=== PATIENT | female | born 1980 | race Caucasian/White ===

== ENCOUNTER 2017-01-09 11:26 | Emergency (ER) | payer BC ==
[~2017-01-09] VITALS: Ht 170.2 cm; Wt 63.5 kg
[~2017-01-09 11:26] MED LIST: CIPR500T94 PO; OXYC-323 PO
[2017-01-09] MEDS ORDERED: ONDANSETRON PF 4 MG/2 ML VIAL. IV ONE (12:30)
[2017-01-09] MEDS ORDERED: KETOROLAC TROMETHAMINE 30 MG/ML INJ. IV ONE (12:30)
[2017-01-09] MEDS ORDERED: LIDO:MAALOX:DONNATAL 1:1:1 15 ML SINGLE DOSE SWSW ONE (12:30)
[2017-01-09 12:47] LABS: CALCIUM 9.9 mg/dL (8.5-10.1); CREATININE 0.9 mg/dL (0.6-1.0); GFR 71.7; POTASSIUM 3.6 mmol/L (3.5-5.1)
[2017-01-09 12:53] LABS: ALBUMIN 4.5 g/dL (3.4-5.0); ALBUMIN/GLOBULIN RATIO 1.3 (1.0-1.7); TOTAL BILIRUBIN 0.2 mg/dL (0.2-1.0); TOTAL PROTEIN 7.9 g/dL (6.4-8.2)
[2017-01-09 13:04] LABS: BASO # 0.1 x10^3/uL (0.0-0.2); BASO % 1 % (0-3); EOS % 2 % (0-3); HEMATOCRIT 42.5 % (36.0-47.0); HEMOGLOBIN 14.8 g/dL (12.0-15.5); LYMPH # 3.4 x10^3/uL (1.0-4.8); LYMPH % 31 % (24-48); MEAN CORPUSCULAR HEMOGLOBIN 33 pg (25-35); MEAN CORPUSCULAR HGB CONC 35 g/dL (31-37); MEAN CORPUSCULAR VOLUME 93 fL (79-100); MONO % 6 % (0-9); NEUT % 61 % (31-73); PLATELET COUNT 245 x10^3/uL (140-400); RED BLOOD COUNT 4.56 x10^6/uL (3.50-5.40); RED CELL DISTRIBUTION WIDTH 13.1 % (11.5-14.5); WHITE BLOOD COUNT 11.3 x10^3/uL (4.0-11.0)
[2017-01-09 13:14] LABS: BILIRUBIN,URINE NEGATIVE (NEG); GLUCOSE,URINE NEGATIVE (NEG); NITRITE,URINE NEGATIVE (NEG); PROTEIN,URINE NEGATIVE (NEG-TRACE); UROBILINOGEN,URINE 0.2 mg/dL (0.2 mg/dL)
[2017-01-09 13:26] LABS: BACTERIA,URINE FEW /HPF (0-FEW); RBC,URINE OCC /HPF (0-2); SQUAMOUS EPITHELIAL CELL,UR MOD /LPF; WBC,URINE 0 /HPF (0-4)
--- NOTE | 2017-01-09 13:31 | EKG ---
[facility] [address] [place] [address] Test Date: 2017-01-09 Test Time: 12:54:02 Pat Name: ERMELINDA MAURER Department: Room: Gender: F [employer]: : 1980 Requested By: NAVI SCHERER Order Number: [id number] Reading MD: Kody Roberson Measurements Intervals [place] Rate: 82 P: 53 NC: 152 QRS: 39 QRSD: 82 T: 60 QT: 352 QTc: 414 Interpretive Statements SINUS RHYTHM Electronically Signed On 01-09-2017 15:39:11 CDT by Kody Roberson
--- NOTE | 2017-01-09 13:40 | PHYS DOC ---
Past Medical History Past Medical History: No Pertinent History Past Surgical History: Hysterectomy Alcohol Use: Occasionally Drug Use: None Adult General Chief Complaint Chief Complaint: ABDOMINAL PAIN HPI HPI Patient is a 36 year old female who presents with abdominal pain. Patient reports 3 day history of epigastric pain, nausea, & belching. She denies fevers /chills, vomiting, diarrhea, constipation, dysuria/hematuria. She denies previous history of similar symptoms. She also reports 1 month history of intermittent left sided sinus pressure without fevers, vision changes, extremity numbness/weakness. She also shaved her pubic hair this week & now has painful bumps in that area. Review of Systems Review of Systems Constitutional: Denies fever or chills Eyes: Denies change in visual acuity HENT: Denies nasal congestion or sore throat Respiratory: Denies cough or shortness of breath Cardiovascular: Denies chest pain or edema GI: Reports abdominal pain, nausea, denies vomiting, bloody stools or diarrhea : Denies dysuria or hematuria Musculoskeletal: Denies back pain or joint pain Integument: Reports skin rash Neurologic: Denies headache, focal weakness or sensory changes Current Medications Current Medications Current Medications Medications (Trade) Dose Ordered Sig/Farhan Start Time Stop Time Status Last Admin Dose Admin Acetaminophen (Tylenol) 650 mg 1X ONCE 01/09/17 15:00 01/09/17 15:01 DC 01/09/17 15:11 650 MG Ketorolac Tromethamine (Toradol) 30 mg 1X ONCE 01/09/17 12:30 01/09/17 12:31 DC 01/09/17 12:41 30 MG Multi-Ingredient Mouthwash/Gargle (Gi Cocktail Single Dose) 15 ml 1X ONCE 01/09/17 12:30 01/09/17 12:31 DC 01/09/17 12:38 15 ML Ondansetron HCl (Zofran) 4 mg 1X ONCE 01/09/17 12:30 01/09/17 12:31 DC 01/09/17 12:40 4 MG Allergies Allergies Allergies Coded Allergies Type Severity Reaction Last Updated Verified No Known Drug Allergies 04/05/14 No Physical Exam Physical Exam Constitutional: Well developed, well nourished, no acute distress, non-toxic appearance. HENT: Normocephalic, atraumatic, bilateral external ears normal, oropharynx moist, nose normal. No focal sinus tenderness with palpation Eyes: PERRLA, EOMI, conjunctiva normal, no discharge. Neck: supple, no stridor. No meningismus Cardiovascular: RRR, no murmurs, no edema. Lungs & Thorax: LCTAB, no wheezing, no respiratory distress. Abdomen: soft, epigastric tenderness without rebound or guarding, no masses or pulsatile masses,, nondistended. Skin: folliculitis to groin without cellulitis or abscess. Back: No CVA tenderness. Extremities: No tenderness, no edema. Neurologic: Alert and oriented X 3, cranial nerves II through XII grossly intact , symmetric strength and sensation upper and lower extremities, no focal deficits noted. Psychologic: Affect normal, judgement normal, mood normal. Current Patient Data Vital Signs Vital Signs Date Time Temp Pulse Resp B/P (MAP) Pulse Ox O2 Delivery O2 Flow Rate FiO2 01/09/17 14:30 70 18 119/59 (79) 98 01/09/17 12:30 Room Air 01/09/17 11:50 98.0 98.0 Lab Values Laboratory Tests Test 01/09/17 10:57 01/09/17 11:45 01/09/17 12:00 POC Urine HCG, Qualitative Hcg negative (Negative) Urine Collection Type Void Urine Color Yellow Urine Clarity Clear Urine pH 6.0 Urine Specific [place] 1.025 Urine Protein Negative mg/dL (NEG-TRACE) Urine Glucose (UA) Negative mg/dL (NEG) Urine Ketones (Stick) Negative mg/dL (NEG) Urine Blood Negative (NEG) Urine Nitrite Negative (NEG) Urine Bilirubin Negative (NEG) Urine Urobilinogen Dipstick 0.2 mg/dL (0.2 mg/dL) Urine Leukocyte Esterase Negative (NEG) Urine RBC Occ /HPF (0-2) Urine WBC 0 /HPF (0-4) Urine Squamous Epithelial Cells Mod /LPF Urine Bacteria Few /HPF (0-FEW) Urine Mucus Slight /LPF White Blood Count 11.3 x10^3/uL (4.0-11.0) H Red Blood Count 4.56 x10^6/uL (3.50-5.40) Hemoglobin 14.8 g/dL (12.0-15.5) Hematocrit 42.5 % (36.0-47.0) Mean Corpuscular Volume 93 fL (79-100) Mean Corpuscular Hemoglobin 33 pg (25-35) Mean Corpuscular Hemoglobin Concent 35 g/dL (31-37) Red Cell Distribution Width 13.1 % (11.5-14.5) Platelet Count 245 x10^3/uL (140-400) Neutrophils (%) (Auto) 61 % (31-73) Lymphocytes (%) (Auto) 31 % (24-48) Monocytes (%) (Auto) 6 % (0-9) Eosinophils (%) (Auto) 2 % (0-3) Basophils (%) (Auto) 1 % (0-3) Neutrophils # (Auto) 6.9 x10^3uL (1.8-7.7) Lymphocytes # (Auto) 3.4 x10^3/uL (1.0-4.8) Monocytes # (Auto) 0.7 x10^3/uL (0.0-1.1) Eosinophils # (Auto) 0.2 x10^3/uL (0.0-0.7) Basophils # (Auto) 0.1 x10^3/uL (0.0-0.2) Sodium Level 139 mmol/L (136-145) Potassium Level 3.6 mmol/L (3.5-5.1) Chloride Level 100 mmol/L (98-107) Carbon Dioxide Level 30 mmol/L (21-32) Anion Gap 9 (6-14) Blood Urea Nitrogen 13 mg/dL (7-20) Creatinine 0.9 mg/dL (0.6-1.0) Estimated GFR (Cockcroft-Gault) 71.7 BUN/Creatinine Ratio 14 (6-20) Glucose Level 96 mg/dL (70-99) Calcium Level 9.9 mg/dL (8.5-10.1) Total Bilirubin 0.2 mg/dL (0.2-1.0) Aspartate Amino Transferase (AST) 10 U/L (15-37) L Alanine Aminotransferase (ALT) 24 U/L (14-59) Alkaline Phosphatase 59 U/L (46-116) Troponin I Quantitative < 0.017 ng/mL (0.000-0.055) Total Protein 7.9 g/dL (6.4-8.2) Albumin 4.5 g/dL (3.4-5.0) Albumin/Globulin Ratio 1.3 (1.0-1.7) Lipase 451 U/L (73-393) H Laboratory Tests 01/09/17 12:00 Laboratory Tests 01/09/17 12:00 EKG EKG interpreted by me: NSR rate 82, no acute ST/T wave changes, normal intervals, no ectopy.[] Radiology/Procedures Radiology/Procedures PROCEDURE: ABDOMEN LTD Limited abdominal ultrasound 01/09/2017 at 1428 hours Indication: Pancreatitis. Comparison: CT abdomen/pelvis 04/05/2014 Technique: Sonographic evaluation of the right upper quadrant was performed utilizing grayscale and color Doppler. Findings: Liver is homogenous without evidence for focal mass lesion. There is no intrahepatic or extrahepatic ductal dilatation. Common bile duct measures 4 mm. There is hepatopedal flow within the portal venous system. Gallbladder is normal in appearance without evidence for gallstones, gallbladder wall thickening or pericholecystic fluid. Visualized portions of the pancreas appear normal. No peripancreatic fluid collections are identified. No dilatation of the main pancreatic duct. The right kidney measures 10.5 x 5.9 x 3.8 cm. No renal calculi are identified. There is no hydronephrosis. Suspicious renal mass. Normal appearance of the visualized portions of the IVC. There is no free fluid in the right upper quadrant. Impression: No sonographic evidence for cholelithiasis. No peripancreatic fluid collection is identified. DICTATED and SIGNED BY: MINDA BANKS MD DATE: 01/09/17 1459 [] Course & Med Decision Making Course & Med Decision Making Pertinent Labs and Imaging studies reviewed. (See chart for details) Patient presents with multiple complaints. Most concerned about her abdominal pain. Gave GI cocktail & her abdominal pain improved. Mild elevation of lipase with normal LFTs, normal RUQ US. She felt better after treatment & would like to go home. Recommend rest, PO hydration with clear liquids, zofran for nausea, zantac for abdominal pain, will give flonase for nasal congestion/ sinus pressure & mupirocin for folliculitis. Encouraged her that she really needs to establish care with primary physician, suggested Dr. Anand. Please make an appointment in 2-3 days. [address] see Dr. Lopez in GI clinic. Come back for high fever, severe pain, uncontrolled vomiting, any otherwise worsening condition. Discharged home in stable condition. [] Dragon Disclaimer Dragon Disclaimer This electronic medical record was generated, in whole or in part, using a voice recognition dictation system. Departure Departure Impression: Primary Impression: Acute pancreatitis Additional Impressions: Folliculitis Sinusitis Disposition: 01 HOME, SELF-CARE Condition: STABLE Referrals: NO PCP (PCP) YUE ANAND MD,JENNIFER Delaney MD Patient Instructions: Acute Pancreatitis, [id number], Folliculitis, Sinus Headache, [id number] Additional Instructions: You were seen in the emergency department today for several problems. You have mild elevation of your lipase level which means he had pancreatitis. You did not have gallstones. Please rest, drink clear liquids, take zantac for abdominal pain & zofran for nausea. Use flonase for nasal congestion. Use topical antibiotic for infected hair follicles. Please follow up with Dr. Anand in primary care clinic in 2-3 days. Follow up with Dr. Lopez in the GI clinic. Come back for high fever, severe pain, uncontrolled vomiting, any otherwise worsening condition. Scripts Mupirocin (MUPIROCIN OINTMENT) 22 Gm Oint...g. 1 MAURA TP TID for WOUND CARE, #1 TUBE Prov: NAVI SCHERER MD 01/09/17 Fluticasone Propionate (Flonase Allergy Relief) 9.9 Ml [place].susp 2 SPRAYS NS DAILY, #1 BOTTLE Prov: NAVI SCHERER MD 01/09/17 Ondansetron (ZOFRAN ODT) 4 Mg Tab.rapdis 1 TAB SL Q8HRS Y for NAUSEA, #10 TAB Prov: NAVI SCHERER MD 01/09/17 Ranitidine Hcl (ZANTAC) 150 Mg Tablet 150 MG PO DAILY, #15 TAB Prov: NAVI SCHERER MD 01/09/17 Problem Qualifiers NAVI SCHERER MD Jan 09, 2017 13:40
--- NOTE | 2017-01-09 14:58 | RAD ---
Limited abdominal ultrasound 01/09/2017 at 1428 hours Indication: Pancreatitis. Comparison: CT abdomen/pelvis 04/05/2014 Technique: Sonographic evaluation of the right upper quadrant was performed utilizing grayscale and color Doppler. Findings: Liver is homogenous without evidence for focal mass lesion. There is no intrahepatic or extrahepatic ductal dilatation. Common bile duct measures 4 mm. There is hepatopedal flow within the portal venous system. Gallbladder is normal in appearance without evidence for gallstones, gallbladder wall thickening or pericholecystic fluid. Visualized portions of the pancreas appear normal. No peripancreatic fluid collections are identified. No dilatation of the main pancreatic duct. The right kidney measures 10.5 x 5.9 x 3.8 cm. No renal calculi are identified. There is no hydronephrosis. Suspicious renal mass. Normal appearance of the visualized portions of the IVC. There is no free fluid in the right upper quadrant. Impression: No sonographic evidence for cholelithiasis. No peripancreatic fluid collection is identified.
[2017-01-09] MEDS ORDERED: ACETAMINOPHEN 325 MG TABLET. PO ONE (15:00)
[2017-01-09 15:30] VITALS: BP 106/67
[2017-01-09] MEDS ORDERED: FLUT9.9S NS (15:32)
[2017-01-09] MEDS ORDERED: MUPI22OI2 TP (15:32)
[2017-01-09] MEDS ORDERED: RANI150T6 PO (15:32)
[2017-01-09] MEDS ORDERED: ONDA4TAB10 SL (15:32)
== END 2017-01-09 15:35 | disposition home or self-care (01) ==
LOC: ER 11:26
DX: K85.90 Acute pancreatitis without necrosis or infection, unspecified (principal); L73.9 Follicular disorder, unspecified; J32.9 Chronic sinusitis, unspecified; Z90.710 Acquired absence of both cervix and uterus
CPT/HCPCS: 36415; 76705; 80053; 81001; 81025; 83690; 84484; 85025; 93005; 96374; 96375; 99285; J1885; J2405

== ENCOUNTER → 2017-07-21 | Outpatient (CLI) | payer BC ==
[~2017-07-21] MED LIST changes: -CIPR500T94 PO; +CONTRAST GIVEN MC; -OXYC-323 PO
[2017-07-21] MEDS: IOHEXOL 300 MG/ML 10ML VIAL. IJ (09:30)
== END | disposition home or self-care (01) ==
LOC: RAD 08:24
DX: M50.022 Cervical disc disorder at C5-C6 level with myelopathy (principal)
CPT/HCPCS: 72126; 72240; Q9967